=== PATIENT | female | born 1990 | race Hispanic/Latino ===

== ENCOUNTER 2017-07-25 10:04 | Emergency (ER) | payer OTHER, BC ==
[2017-07-25 10:08] VITALS: O2SAT 100
[2017-07-25 10:09] VITALS: BMI 18.6
[2017-07-25] MEDS ORDERED: Naproxen 500 MG TAB PO STA (10:41)
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
[2017-07-25] MEDS ORDERED: Naproxen 500 MG TAB PO ONE (10:56)
[2017-07-25 11:36] VITALS: BP 110/66; PULSE 88; RESP 14; TEMP 97.8
== END 2017-07-25 11:35 | disposition home or self-care (01) ==
LOC: H.ER 10:04
DX: M25.512 Pain in left shoulder (principal); M54.2 Cervicalgia; M62.838 Other muscle spasm